=== PATIENT | female | born 1935 | race Caucasian/White ===

== ENCOUNTER 2018-06-13 19:54 | Observation (INO) ==
[2018-06-13] MEDS ORDERED: SODIUM CHLORIDE 0.9% 500 ML IV STA (20:32)
[2018-06-13 21:20] LABS: Basophils % 0.3 % (0.0-0.8); Eosinophils % 0.6 % (0.00-10.9); Hematocrit 39.2 VOL% (35.7-47.0); Hemoglobin 12.7 GM/DL (12.0-16.0); Immature Granulocytes % 0.3 %; Immature Granulocytes Absolute 0.02 #; Lymphocytes # 1.5 10*3/uL (1.4-4.0); Mean Corpuscular HGB Conc 32.4 GM/DL (32-36); Mean Corpuscular Hemoglobin 30 PG (27-34); Mean Corpuscular Volume 93.8 FL (87-102); Mean Platelet Volume 10.4 FL (9.6-12.0); Monocytes # 0.8 10*3/uL (0.11-0.8); Neutrophils # 4.6 10*3/uL (1.4-7.4); Neutrophils % 65.8 % (38.7-73.9); Platelet Count 149 T/CUMM (130-400); Red Blood Count 4.18 MC/CUMM (3.8-5.5); Red Cell Distribution Width 13.3 % (9.3-17.3)
[2018-06-13 21:31] LABS: INR 1.2; PT Patient Result 12.7 SECS; Partial Thromboplastin Time 31.6 SECS (0-40)
[2018-06-13 21:43] LABS: Alanine Aminotransferase 17 U/L (13-56); Albumin 3.5 G/DL (3.4-5.0); Alkaline Phosphatase 70 U/L (45-117); Aspartate Amino Transferase 20 U/L (0-37); Blood Urea Nitrogen 7 MG/DL (7-18); Calcium 8.3 MG/DL (8.5-10.1); Glucose 168 MG/DL (74-106); Osmolality,Calculated 276.7 MOS/KG (273-304); Sodium 138 MMOL/L (136-145); Total Protein 6.5 G/DL (6.4-8.3); Troponin I < 0.015 NG/ML (0.00-0.045)
[2018-06-13 21:58] LABS: Apearance,Urine CLEAR (Clear); Bilirubin,Urine Negative (Negative); Blood, Urine Negative (Negative); Glucose,Urine (UA) Negative (Negative); Ketones,Urine Negative (Negative); Mucus,Urine Occasional /LPF (Occasional); Nitrite,Urine Negative (Negative); Protein,Urine Negative; RBC,Urine 6 /HPF (0-4); Urine Color Yellow (Yellow); Urine Specific Gravity 1.016 (1.001-1.035); Urine Urobilinogen < 2.0 EU/DL (0.2-1.0); WBC,Urine 2 /HPF (0-6)
[2018-06-13 22:08] LABS: Barbiturates Screen,Urine Negative (Negative); Benzodiazepines Screen,Urine Negative (Negative); Cannabinoid Screen,Urine Negative (Negative); Opiate Screen,Urine Negative (Negative); Phencyclidine Screen,Urine Negative (Negative)
[2018-06-13] MEDS ORDERED: ONDANSETRON 4 MG/2 ML VIAL IV PRN (22:57)
[2018-06-13] MEDS ORDERED: GLUCAGON 1 MG VIAL IM PRN (22:57)
[2018-06-13] MEDS ORDERED: DEXTROSE 50% 25 GM/50 ML SYRINGE IV PRN (22:57)
[2018-06-13 23:20] LABS: Risk Ratio 2.81; VLDL CHOLESTEROL 20.6 MG/DL
[2018-06-14] MEDS: cefTRIAXone 1,000 MG in SYRINGE 1 EACH IV SCH (00:54)
[2018-06-14] MEDS: clonazePAM 0.5 MG TABLET PO SCH ×2 (00:54→21:16)
[2018-06-14] MEDS: LEVOTHYROXINE 25 MCG TABLET PO SCH (06:01)
[2018-06-14] MEDS: INSULIN REGULAR 100 UNIT/ML SUBCUT SCH ×4 (07:18→21:16)
[2018-06-14] MEDS ORDERED: MEMANTINE HCL 21 MG PO SCH (09:00)
[2018-06-14] MEDS: POTASSIUM CHLORIDE 20 MEQ TABLET PO SCH (09:26)
[2018-06-14] MEDS: RIVAROXABAN 20 MG TABLET PO SCH (09:26)
[2018-06-14] MEDS ORDERED: DIGOXIN 0.25 MG TABLET PO SCH (13:00)
[2018-06-15] MEDS: cefTRIAXone 1,000 MG in SYRINGE 1 EACH IV SCH ×2 (00:24→23:35)
[2018-06-15] MEDS: LEVOTHYROXINE 25 MCG TABLET PO SCH (05:31)
[2018-06-15 07:00] LABS: Calcium 8.2 MG/DL (8.5-10.1); Osmolality,Calculated 282.3 MOS/KG (273-304); Potassium 3.8 MMOL/L (3.5-5.1)
[2018-06-15] MEDS: INSULIN REGULAR 100 UNIT/ML SUBCUT SCH ×4 (07:42→20:09)
[2018-06-15] MEDS: POTASSIUM CHLORIDE 20 MEQ TABLET PO SCH (08:47)
[2018-06-15] MEDS: RIVAROXABAN 20 MG TABLET PO SCH (08:47)
[2018-06-15] MEDS: DIGOXIN 0.125 MG TABLET PO SCH (14:14)
[2018-06-15] MEDS: clonazePAM 0.5 MG TABLET PO SCH (20:09)
[2018-06-16 05:32] LABS: Calcium 8.7 MG/DL (8.5-10.1); Osmolality,Calculated 280.3 MOS/KG (273-304); Potassium 3.6 MMOL/L (3.5-5.1); Thyroid Stimulating Hormone 2.91 uIU/ml (0.358-3.74)
[2018-06-16] MEDS: LEVOTHYROXINE 25 MCG TABLET PO SCH (05:51)
[2018-06-16] MEDS: INSULIN REGULAR 100 UNIT/ML SUBCUT SCH ×2 (08:11→11:34)
[2018-06-16] MEDS: POTASSIUM CHLORIDE 20 MEQ TABLET PO SCH (08:43)
[2018-06-16] MEDS: RIVAROXABAN 20 MG TABLET PO SCH (08:43)
[2018-06-16] MEDS ORDERED: MEMANTINE 10 MG TABLET PO SCH (09:00)
[2018-06-16 11:45] VITALS: BP 102/69
[2018-06-16] MEDS: DIGOXIN 0.125 MG TABLET PO SCH (13:02)
== END 2018-06-16 13:31 | disposition home health service (06) ==
LOC: N.5E 19:54 → N.ED 19:54 → SUATTDRO 22:57 → N.5E 06-14 00:30
PROVIDERS: ADMIT Internal Medicine; ATTEND Internal Medicine